=== PATIENT | female | born 1945 | race Caucasian/White ===

== ENCOUNTER 2017-04-08 01:08 | Emergency (ER) | payer OTHER, BC ==
[2017-04-08] MEDS ORDERED: NS 1,000 ML IV ONE ×2 (01:23→02:15)
[2017-04-08] MEDS ORDERED: ONDANSETRON 4 MG/2 ML VIAL IVP ONE (01:23)
--- NOTE | 2017-04-08 01:24 | EDPHY ---
H & P Stated Complaint: N,V,D HPI/ROS: HPI CHIEF COMPLAINT: Nausea, vomiting, diarrhea HISTORY OF PRESENT ILLNESS: Patient very pleasant 71-year-old female, she does have significant past medical history for hypertension in AFib, she is well controlled, she presents emergency room with nausea vomiting and diarrhea. This started around 8:00 p.m. tonight. It has continued with ongoing nausea vomiting nonbilious nonbloody. She denies any chest pain or shortness of breath denies abdominal pain. States she could not get the nausea vomiting under control also came to the emergency room if she feels very dehydrated. She is visiting her daughter here, she is from a [facility] and is due to go back at 10:00 a.m. today. She denies any chest pain or shortness of breath. She does feel dehydrated. Patient does report that they had fish around 6:00 p.m. around 8:00 p.m. her symptoms started. Nobody else sick currently. She denies fever. Past Medical History: Hypertension and AFib Past Surgical History: No recent surgery. Social History: Denies daily use of drugs alcohol tobacco. Lives in [facility]. Family History: Noncontributory. ROS REVIEW OF SYSTEMS: A comprehensive 10 point review of systems is otherwise negative aside from elements mentioned in the history of present illness. Exam Constitutional appears nontoxic triage nursing summary reviewed, vital signs reviewed, awake/alert. Eyes normal conjunctivae and sclera, EOMI, PERRLA. HENT normal inspection, atraumatic, dry mucous membranes, no epistaxis, neck supple/ no meningismus, no raccoon eyes. Respiratory clear to auscultation bilaterally, normal breath sounds, no respiratory distress, no wheezing. Cardiovascular rate normal, regular rhythm, no murmur, no edema, distal pulses normal. Gastrointestinal soft, non-tender, no rebound, no guarding, normal bowel sounds, no distension, no pulsatile mass. Genitourinary no CVA tenderness. Musculoskeletal no midline vertebral tenderness, full range of motion, no calf swelling, no tenderness of extremities, no meningismus, good pulses, neurovascularly intact. Skin pink, warm, & dry, no rash, skin atraumatic. Neurologic awake, alert and oriented x 3, AAOx3, moves all 4 extremities equally, motor intact, sensory intact, CN II-XII intact, normal cerebellar, normal vision, normal speech. Psychiatric normal mood/affect. Heme/Lymph/Immune no lymphadenopathy. Differential Diagnosis: Includes but not limited to in a particular order dehydration mom a of high sure light disturbance, acute diarrheal illness, nausea vomiting, enteritis, gastroenteritis, infection Medical Decision Making: Plan for this patient IV establishment with IV fluid bolus, 1 L normal saline, IV Zofran 4 mg for nausea, check basic blood work, electrolytes chemistry panel. Re-evaluate check UA. Stool studies. Re-evaluation: 0335: Patient has received 2 L of fluid. Additionally she received IV Zofran she is feeling much better. Abdomen remained soft nontender. She is not vomiting. She p.o. challenge well. She is requesting discharge home. Blood work has been reviewed. There is no high white count. Electrolytes are appropriate. Clinically she was dry on exam. Feeling much better after IV fluids. Will give her prescription for Zofran. She does understand return emergency room she develops worsening symptoms vomiting diarrhea fever abdominal pain. Most likely cause of nausea vomiting and diarrhea is a viral illness. Recommend bland diet over the next 48 hr. Return precautions given Source: Patient, Family - Personal History Current Tetanus/Diphtheria Vaccine: Yes Current Tetanus Diphtheria and Acellular Pertussis (TDAP): Yes - Medical/Surgical History Hx Asthma: No Hx Chronic Respiratory Disease: No Hx Diabetes: No Hx Cardiac Disease: No Hx Renal Disease: No Hx Cirrhosis: No Hx Alcoholism: No Hx HIV/AIDS: No Hx Splenectomy or Spleen Trauma: No Other PMH: HTN. A FIB. GALLBLADDER ISSUES WITH CHOLESECTOMY - Social History Smoking Status: Never smoked Constitutional: Initial Vital Signs Temperature (C) 36.6 C 04/08/17 01:14 Heart Rate 103 H 04/08/17 01:14 Respiratory Rate 18 04/08/17 01:14 Blood Pressure 111/64 04/08/17 01:14 O2 Sat (%) 97 04/08/17 01:14 O2 Delivery Mode Room Air O2 (L/minute) 2 Allergies/Adverse Reactions: strawberry Allergy (Verified 04/08/17 01:16) CONTRAST Allergy (Uncoded 04/08/17 01:16) Home Medications: Medication Instructions Recorded Ondansetron HCl [Zofran] 4 mg PO Q4-6PRN PRN #10 tablet 04/08/17 Medical Decision Making - Data Points Laboratory Results: Laboratory Results 04/08/17 01:38 04/08/17 01:38 04/08/17 04/08/17 04/08/17 02:55 01:38 01:38 WBC 8.50 10^3/uL 10^3/uL (3.80-9.50) RBC 4.44 10^6/uL 10^6/uL (4.18-5.33) Hgb 14.1 g/dL g/dL (12.6-16.3) Hct 40.1 % % (38.0-47.0) MCV 90.3 fL fL (81.5-99.8) MCH 31.8 pg pg (27.9-34.1) MCHC 35.2 g/dL g/dL (32.4-36.7) RDW 11.8 % % (11.5-15.2) Plt Count 222 10^3/uL 10^3/uL (150-400) MPV 10.0 fL fL (8.7-11.7) Neut % (Auto) 92.1 % H % (39.3-74.2) Lymph % (Auto) 1.9 % L % (15.0-45.0) [place] % (Auto) 4.6 % % (4.5-13.0) Eos % (Auto) 1.2 % % (0.6-7.6) Baso % (Auto) 0.1 % L % (0.3-1.7) Nucleat RBC Rel Count 0.0 % % (0.0-0.2) Absolute Neuts (auto) 7.83 10^3/uL H 10^3/uL (1.70-6.50) Absolute Lymphs (auto) 0.16 10^3/uL L 10^3/uL (1.00-3.00) Absolute Monos (auto) 0.39 10^3/uL 10^3/uL (0.30-0.80) Absolute Eos (auto) 0.10 10^3/uL 10^3/uL (0.03-0.40) Absolute Basos (auto) 0.01 10^3/uL L 10^3/uL (0.02-0.10) Absolute Nucleated RBC 0.00 10^3/uL 10^3/uL (0-0.01) Immature Gran % 0.1 % % (0.0-1.1) Immature Gran # 0.01 10^3/uL 10^3/uL (0.00-0.10) Sodium 143 mEq/L mEq/L (134-144) Potassium 4.1 mEq/L mEq/L (3.5-5.2) Chloride 103 mEq/L mEq/L (97-110) Carbon Dioxide 27 mEq/l mEq/l (22-31) Anion Gap 13 mEq/L mEq/L (8-16) BUN 30 mg/dL H mg/dL (7-23) Creatinine 0.7 mg/dL mg/dL (0.6-1.0) Estimated GFR > 60 Glucose 152 mg/dL H mg/dL (70-100) Calcium 9.4 mg/dL mg/dL (8.5-10.4) Total Bilirubin 0.5 mg/dL mg/dL (0.1-1.4) Conjugated Bilirubin 0.1 mg/dL mg/dL (0.0-0.5) Unconjugated Bilirubin 0.4 mg/dL mg/dL (0.0-1.1) AST 33 IU/L IU/L (14-46) ALT 43 IU/L IU/L (9-52) Alkaline Phosphatase 114 IU/L IU/L (38-126) Total Protein 7.1 g/dL g/dL (6.3-8.2) Albumin 4.5 g/dL g/dL (3.5-5.0) Lipase 75 IU/L IU/L (23-300) Urine Color YELLOW Urine Appearance CLEAR Urine pH 5.0 (5.0-7.5) Ur Specific [place] 1.018 (1.002-1.030) Urine Protein NEGATIVE (NEGATIVE) Urine Ketones NEGATIVE (NEGATIVE) Urine Blood 2+ H (NEGATIVE) Urine Nitrate NEGATIVE (NEGATIVE) Urine Bilirubin NEGATIVE (NEGATIVE) Urine Urobilinogen NEGATIVE EU EU (0.2-1.0) Ur Leukocyte Esterase NEGATIVE (NEGATIVE) Urine RBC 5-10 /hpf H /hpf (0-3) Urine WBC 1-3 /hpf /hpf (0-3) Ur Epithelial Cells TRACE /lpf /lpf (NONE-1+) Urine Mucus TRACE /lpf /lpf (NONE-1+) Urine Glucose NEGATIVE (NEGATIVE) Medications Given: Discontinued Medications Sodium Chloride (Ns) 1,000 mls @ 0 mls/hr IV EDNOW ONE; Wide Open PRN Reason: Protocol Stop: 04/08/17 01:24 Last Admin: 04/08/17 01:34 Dose: 1,000 mls Sodium Chloride (Ns) 1,000 mls @ 0 mls/hr IV ONCE ONE PRN Reason: Wide Open Stop: 04/08/17 02:16 Last Admin: 04/08/17 02:20 Dose: 1,000 mls Ondansetron HCl (Zofran) 4 mg IVP EDNOW ONE Stop: 04/08/17 01:24 Last Admin: 04/08/17 01:33 Dose: 4 mg Departure - Departure Disposition: Home, Routine, Self-Care Clinical Impression: Nausea vomiting and diarrhea Condition: Good Instructions: Dehydration (ED), Acute Nausea and Vomiting (ED), Acute Diarrhea (ED) Additional Instructions: 1. Rich diet over the next 24-48 hours. 2. Zofran as needed for nausea 3. Return to the emergency room if develops any worsening symptoms includes vomiting, fever, abdominal pain. Worsening diarrhea. Referrals: Patient,NotPresent [Unknown] - As per Instructions Prescriptions: Ondansetron HCl [Zofran] 4 mg PO Q4-6PRN PRN #10 tablet PRN Reason: Nausea/Vomiting, Use 1st
[2017-04-08 01:26] VITALS: RESP 18
[2017-04-08 01:45] LABS: PLATELET COUNT 222 10^3/uL (150-400)
[2017-04-08 03:06] VITALS: O2SAT 93
[2017-04-08] MEDS ORDERED: ONDANSETRON 4MG PREPACK#2 BTL TAKEHOME ONE (03:55)
[2017-04-08 04:03] VITALS: BP 124/50; PULSE 97; TEMP 98.6
== END 2017-04-08 04:03 | disposition home or self-care (01) ==
DX: R11.2 Nausea with vomiting, unspecified (principal); R19.7 Diarrhea, unspecified; I10 Essential (primary) hypertension; E86.9 Volume depletion, unspecified
CPT/HCPCS: 96361; 96374; 99284; J2405